=== PATIENT | male | born 1980 | race Caucasian/White ===

== ENCOUNTER 2019-01-23 13:51 | Emergency (ER) | payer BC ==
[~2019-01-23] VITALS: Ht 172.7 cm; Wt 92.5 kg
[2019-01-23] MEDS ORDERED: ASPIRIN 81 MG TABLET CHEW ONE ×2 (14:03→14:09)
--- NOTE | 2019-01-23 14:06 | NUR ---
Pt to rm 30 from lobby.
[2019-01-23] MEDS ORDERED: LISI-167 PO (14:13)
--- NOTE | 2019-01-23 14:19 | NUR ---
pt to ed for sob, chest pressure and general fatigue and weakness since this am. pt states pressure is worse after eating and moves to epigastric area. pt received 162 asa in triage. connected to monitors. vss. awaiting edmd assessment.
[2019-01-23 14:27] LABS: BASOPHILS # (AUTO) 0.02 x10^3/uL (0-0.1); BASOPHILS % (AUTO) 0 % (0-1); EOSINOPHILS # (AUTO) 0.08 x10^3/uL (0-0.4); EOSINOPHILS % (AUTO) 1 % (1-7); LYMPHOCYTES % (AUTO) 34 % (22-44); MD NO; MEAN CORPUSCULAR HEMOGLOBIN 29.4 pg (27.5-34.5); MEAN CORPUSCULAR HGB CONC 34.3 g/dL (33.2-36.2); MEAN CORPUSCULAR VOLUME 85.8 fL (81-97); MEAN PLATELET VOLUME 7.6 fL (7.4-10.4); MONOCYTES % (AUTO) 7 % (2-9); NEUTROPHILS # (AUTO) 4.18 x10^3/uL (1.8-6.8); NEUTROPHILS % (AUTO) 57 % (42-75); PLATELET COUNT 262 x10^3/uL (130-400); RED BLOOD COUNT 5.15 x10^6/uL (4.38-5.82); RED CELL DISTRIBUTION WIDTH 13.3 % (9.4-14.8)
[2019-01-23] MEDS ORDERED: ASPIRIN 81 MG TABLET CHEW PO ONE (14:30)
[2019-01-23 14:37] LABS: ALANINE AMINOTRANSFERASE 47 U/L (12-78); ALBUMIN 4.2 g/dL (3.4-5.0); ANION GAP 6 mmol/L (5-15); CALCIUM 8.9 mg/dL (8.5-10.1); CHLORIDE 109 mmol/L (98-107); CREATININE 0.99 mg/dL (0.7-1.3)
[2019-01-23 14:41] LABS: ALKALINE PHOSPHATASE 53 U/L (45-117); BILIRUBIN,TOTAL 0.4 mg/dL (0.2-1.0); TOTAL PROTEIN 7.8 g/dL (6.4-8.2); TROPONIN I < 0.015 ng/mL (0.000-0.045)
[2019-01-23 14:45] VITALS: BP 148/81
--- NOTE | 2019-01-23 14:46 | NUR ---
all results back at this time. pt resting in room. vss. no needs expressed. chart upf or recheck.
--- NOTE | 2019-01-23 14:50 | NUR ---
edmd to bedside.
[2019-01-23] MEDS ORDERED: ACETAMINOPHEN 500 MG TABLET PO ONE (15:30)
[2019-01-23] MEDS ORDERED: IBUPROFEN 200 MG TABLET PO ONE (15:30)
[2019-01-23] MEDS ORDERED: IBUPROFEN 200 MG TABLET ONE (15:40)
[2019-01-23] MEDS ORDERED: ACETAMINOPHEN 500 MG TABLET ONE (15:41)
== END 2019-01-23 15:55 | disposition home or self-care (01) ==
LOC: ED 15:49
DX: R07.89 Other chest pain (principal); G44.209 Tension-type headache, unspecified, not intractable; I10 Essential (primary) hypertension
CPT/HCPCS: 36415; 71045; 80053; 84484; 85025; 93005; 99284